=== PATIENT | male | born 2000 | race Two or more races ===

== ENCOUNTER 2025-06-16 13:57 | Emergency (ER) | payer MEDICAID, SELFPAY ==
[2025-06-16 14:03] VITALS: BP 128/79; PULSE 84; RESP 16; TEMP 36.9; O2SAT 96; BMI 33.4
--- NOTE | 2025-06-16 14:12 | EDNOTE_ITS ---
ED General RME/HPI General Chief complaint: General Adult/Misc Complain Stated complaint: INFECTION TIP OF PENIS Time Seen by Provider: 06/16/25 14:11 Arrival date/time: 06/16/25 13:57 RME / HPI RME / HPI narrative: Katja is a 25 y/o male with PMHx of Pilondial cyst who comes in for evaluation of penile pain, swelling, and discharge, onset about a week ago, has happened before about 2 years ago. Patient reports that this pain had started about a week ago and during the week he had gone to develop drainage that was described as yellow and red. He says he has not been able to retract his foreskin, however he wants to go see his primary care doctor and was told to go to the ER. He says that something similar to this happened about 2 years ago, however resolved on his own. He has been using ibuprofen to manage his pain. His pain is rated 8 out of 10 at this time. He is currently sexually active in the last sexual partner he had was about 6 months ago in which it was a female and he wore protection. He says he has been able to pee fine. He reports any testicular pain, abdominal pain, chest pain, shortness of breath, numbness, tingling, however he does say that he noticed some chills. He is uncircumcised. He denies having any problem with vision or arthralgias. Denies any drug history, recent travel or smoking history. No other complaints at this time. Related Data Previous Rx's ?Medication ?Instructions ?Recorded albuterol sulfate 90 mcg/actuation 2 puff inhalation Q ID #18 grams 03/03/19 aerosol inhaler (Proventil HFA) methylprednisolone 4 mg tablets in 4 mg PO DAILY #21 t abs 03/03/19 a dose pack (Medrol (Robert)) azithromycin 500 mg tablet See Rx Instructions PO .COM PLEX #3 09/18/20 tabs cephalexin 500 mg capsule (Keflex) 500 mg PO Q12H #14 caps 09/18/20 ondansetron 4 mg disintegrating 4 mg PO Q8H PRN nausea and 09/18/20 tablet vomiting #14 tabs amoxicillin 875 mg-potassium 1 tab PO BID #14 tabs 07/01 clavulanate 125 mg tablet doxycycline monohydrate 100 mg 100 mg PO BID 7 days #1 4 caps 06/16/25 capsule ibuprofen 800 mg tablet 800 mg PO Q8H PRN pain #30 t abs 06/16/25 Allergies Allergy/AdvReac Type Severity Reaction Status Date / Time No Known Allergies Allergy Verified 06/16/25 14:00 Review of Systems Review of Systems Narrative Review of Systems: 12 point ROS reviewed and is otherwise negative unless stated directly in the HPI ED Exam Narrative Physical exam: General: AAOx3, NAD, HEENT: Moist mucous membranes, conjunctiva clear, EOMI, PERRLA, Cardiovascular: S1, S2, radial pulses +2 bilat, RRR Pulmonary: CTAB bilat no cough, no wheezing GI: No tenderness to light or deep palpitation, no guarding, rigidity, rebound tenderness or distension, anus visualized, anal wink present, no cyst or abscess visualized around gluteal region : Testicular shaft swollen, urethra draining yellow, scant, red pus that is odorous. Difficulty retracting foreskin due to pain, testes unremarkable Extremities: No presence of trace or pitting edema in lower extremities bilaterally, dorsalis pedis pulses +2 bilaterally Neuro: AAOx3, no focal motor or sensory deficits in the UE or LE bilat Psych: Good judgement, thought and behavior Course Quality Measures none Orders Category Date Time Status CT Screening NOW Care 06/16/25 15:14 Completed Insert IV NOW Care 06/16/25 15:[address] abdomen pelvis w con Stat Exams 06/16/25 15:14 Completed Blood Culture (Lab) Stat Lab 06/16/25 14:21 Received CBC Stat Lab 06/16/25 14:29 Completed CMP [Comprehensive Metabolic Panel] Stat Lab 06/16/25 14:29 Completed Chlamydia/GC/TV - PCR Stat Lab 06/16/25 15:00 Received Genital Culture and Gram Stain Stat Lab 06/16/25 14:35 Results HIV (1&2) Antibody Rapid Stat Lab 06/16/25 14:29 Completed Lactate (Lactic Acid) Stat Lab 06/16/25 14:29 Completed Procalcitonin Stat Lab 06/16/25 14:29 Completed Syphilis Stat Lab 06/16/25 14:29 Completed UA, C/S IF [Urinalysis, C/S if Indicated] Stat Lab 06/16/25 15:00 Completed Urine Culture Stat Lab 06/16/25 15:00 Received Doxycycline [Vibramycin] Med 06/16/25 14:40 Discontinued 100 mg PO X1 ONE Ketorolac Inj [Toradol Inj] Med 06/16/25 14:45 Discontinued 30 mg IM X1 ONE cefTRIAXone [Rocephin] 1,000 mg Med 06/16/25 14:44 Discontinued Lidocaine 1% 20 ml [Xylocaine 1% 20 ML] 2.1 ml IM X1 Vital Signs Vital signs: Vital Signs Temperature 98.5 F 06/16/25 14:03 Pulse Rate 84 06/16/25 14:03 Respiratory Rate 16 06/16/25 14:03 Blood Pressure 128/79 06/16/25 14:03 Pulse Oximetry (%) 96 06/16/25 14:03 Oxygen Delivery Method Room Air 06/16/25 14:03 Discharge Plan Plan Patient Disposition: HOME (Self Care) Discharge Disposition comment: Stable Prescriptions/Referrals Prescriptions/Med Rec: New doxycycline monohydrate 100 mg capsule 100 mg PO BID 7 Days Qty: 14 0RF Rx Instructions: Take one capsule by mouth twice a day amoxicillin-pot clavulanate 875-125 mg tablet 1 tab PO BID Qty: 14 0RF ibuprofen 800 mg tablet 800 mg PO Q8H PRN (Reason: pain) Qty: 30 0RF No Action albuterol sulfate [Proventil HFA] 90 mcg/actuation HFA aerosol inhaler 2 puff INH QID Qty: 18 0RF methylprednisolone [Medrol (Robert)] 4 mg tablets,dose pack 4 mg PO DAILY Qty: 21 0RF azithromycin 500 mg tablet See Rx Instructions .ROUTE .COMPLEX Qty: 3 0RF Rx Instructions: take 500 mg today (day 1), then 250 mg for 4 days (days 2-5) cephalexin [Keflex] 500 mg capsule 500 mg PO Q12H Qty: 14 0RF ondansetron 4 mg tablet,disintegrating 4 mg PO Q8H PRN (Reason: nausea and vomiting) Qty: 14 0RF Referrals: No Primary/Family,Physician [Primary Care Provider] - In 1 week Problem List Clinical Impression: Urethritis Patient/Caregiver Discharge Instructions Discharge Activity: activity as tolerated Education Materials: ED Urethritis Infec Vs Inflam ... Additional Instructions: Thank you for the opportunity for serving you today. You are stable for discharged . You are advised to: Follow-up with your PCP in 1 to 2 days unless there is a urologist Return to ED for worsening of symptoms Increase oral fluids Take medication as prescribed Print Language: Mohawk Stand Alone Forms: Lana Award Info., Work/School Release, Patient Portal Info Letter MDM Narrative MDM hospital course (for use when minimal MDM required): 1512: Rocephin intramuscularly, doxycycline oral, will follow-up labs, due to possible deep seeding infection and history of this before, will order abdomen pelvis CT with contrast as also patient has history of this and spondylosis. Will follow-up with genital fluid culture. U/A ordered. Will follow up with STD panel and other labs. 1800: Case handed off to ED Provider, Arvin Campbell. Medication Administration(s) Medication Administration History Discontinued Medications Ceftriaxone Sodium 1,000 mg/ (Lidocaine HCl 2.1 ml) 0 mg IM X1 ONE Stop: 06/16/25 14:45 Last Admin: 06/16/25 14:55 Dose: 1,000 mg Documented By: Jose Ramon Doxycycline Hyclate (Doxycycline 100 Mg Tablet) 100 mg PO X1 ONE Stop: 06/16/25 14:41 Last Admin: 06/16/25 14:53 Dose: 100 mg Documented By: [facility] Ketorolac Tromethamine (Ketorolac Inj 30 Mg/Ml Vial) 30 mg IM X1 ONE Stop: 06/16/25 14:46 Last Admin: 06/16/25 14:53 Dose: 30 mg Documented By: [facility]
--- NOTE | 2025-06-16 14:12 | PD.EDRME ---
Rapid Medical Screening Exam [facility] Arrival date/time: 06/16/25 13:57 25-year-old male with no known medical history presents to the emergency room with a chief complaint of swelling, pus draining, tenderness, to the head of his penis. Patient is unable to retract back his foreskin. I have greeted and performed a focused initial assessment of this patient. A comprehensive ED assessment and evaluation of the patient, analysis of all test results, and completion of the medical decision making process will be conducted by additional ED providers. Chief Complaint: General Adult/Misc Complain Time Seen by Provider: 06/16/25 14:11 Vital signs: Vital Signs Temperature 98.5 F 06/16/25 14:03 Pulse Rate 84 06/16/25 14:03 Respiratory Rate 16 06/16/25 14:03 Blood Pressure 128/79 06/16/25 14:03 Pulse Oximetry (%) 96 06/16/25 14:03 Oxygen Delivery Method Room Air 06/16/25 14:03 Vital signs reviewed by provider: Yes
[2025-06-16 14:26] VITALS: BP 118/80; PULSE 78; RESP 16; O2SAT 97
--- NOTE | 2025-06-16 14:29 | PC.NURSE ---
pt here with c/o redness and drainage from penis for 2 days
--- NOTE | 2025-06-16 14:35 | PC.NURSE ---
dr. charles in to examine pt's penis. Brown drainage coming from penis. Head and shaft of penis swollen. Culture done by
[2025-06-16 14:38] LABS: Lactate (Lactic Acid) 0.8 mMol/L (0.4-2.0)
[2025-06-16 14:47] LABS: Basophils # (Auto) 0.1 Thou/mm3 (0.0-0.2); Basophils % (Auto) 0 % (0-2.5); Eosinophils # (Auto) 0.0 Thou/mm3 (0.0-0.5); Eosinophils % (Auto) 0 % (0-10); Hematocrit 40.1 % (41.0-53.0); Hemoglobin 13.9 g/dL (13.5-16.0); Immature Granulocytes Auto 0.06 Thou/mm3 (0.00-0.00); Lymphocytes # (Auto) 2.4 Thou/mm3 (1.0-4.8); Lymphocytes % (Auto) 19 % (10-50); Mean Corpuscular HGB Conc 34.7 g/dl (31.0-37.0); Mean Corpuscular Hemoglobin 32.5 pg (25.0-35.0); Mean Corpuscular Volume 94 fL (80-100); Monocytes # (Auto) 0.8 Thou/mm3 (0.0-0.8); Monocytes % (Auto) 6 % (0-12); Neutrophils # (Auto) 9.4 Thou/mm3 (1.8-7.7); Neutrophils % (Auto) 74 % (37-80); Nucleated Red Blood Cell # 0.00 Thou/mm3 (0.00-0.00); Nucleated Red Blood Cell % 0 /100 WBC (0); Platelet Count 325 Thou/mm3 (140-440); RDW Standard Deviation 43.6 fL (35.1-43.9); Red Blood Count 4.28 Miln/mm3 (4.50-5.90); White Blood Count 12.7 Thou/mm3 (3.8-10.6)
[2025-06-16] MEDS: KETOROLAC INJ 30 MG/ML VIAL IM (14:53)
[2025-06-16] MEDS: DOXYCYCLINE 100 MG TABLET PO (14:53)
[2025-06-16] MEDS: cefTRIAXone 1,000 MG, LIDOCAINE 1% 20 ML 2.1 ML IM (14:55)
--- NOTE | 2025-06-16 15:14 | XR_ITS ---
Examination: CT abdomen with intravenous contrast CT pelvis with intravenous contrast 2-D coronal reconstructions 2-D sagittal reconstructions Date and time of exam: June 16, 2025, 1731 hours INDICATIONS: History of infection involving the penis 3 days ago, abdominal pelvic pain. CTDI: vol (mGy) 9.62 DLP: (mGycm) 9.62 Technique: Multiple axial sections of the abdomen and pelvis have been obtained. 64 slice high-resolution scanner used. 3 mm axial sections have been obtained, post intravenous injection 60 cc [id number] 2-D sagittal, coronal reconstructions obtained. Low dose protocols were performed. One or more of the following dose reduction techniques were used; automated exposure control, adjustment of the mA and/or KV according to patient size, use of iterative reconstruction technique. Findings: No focal liver or splenic lesions No gallstones No pancreatic or adrenal mass No renal or ureteral calculi Aorta normal size. No bowel obstruction Normal appendix Colonic diverticulosis, no diverticulitis No pelvic or urinary bladder mass Swelling of the mid and distal portion of the penis IMPRESSION: No abdominal or pelvic abscess Recommend ultrasound soft tissue penis follow-up
[2025-06-16 15:16] LABS: Collection Type, Urine Clean Catch
[2025-06-16 15:20] LABS: Alanine Aminotransferase 21 U/L (10-49); Albumin, Serum 5.2 gm/dL (3.5-5.0); Albumin/Globulin Ratio 1.6 (1.2-2.2); Alkaline Phosphatase 84 U/L (46-116); Anion Gap 11 (7-16); Aspartate Amino Transferase 16 U/L (0-34); BUN/Creatinine Ratio 11 Ratio (12-20); Bilirubin,Total 0.5 mg/dL (0.3-1.2); Blood Urea Nitrogen 10 mg/dL (9-23); Calcium 10.0 mg/dL (8.3-10.6); Calcium (Corrected) 10.0 mg/dL (8.5-10.1); Carbon Dioxide 22.1 mMol/L (20.0-31.0); Chloride 106 mMol/L (98-107); Creatinine (Component) 0.9 mg/dL (0.6-1.3); Estimated Creatinine Clearance 143.7 mL/min (>60); Globulin 3.3 gm/dL (2.3-3.5); Glucose 97 mg/dL (74-106); Osmolality,Calculated 276 (275-295); Potassium 3.9 mMol/L (3.4-5.1); Procalcitonin 0.19 ng/ml (0.0-0.49); Sodium 139 mMol/L (136-145); Total Protein 8.5 gm/dL (5.7-8.2); eGFR > 60 See Note
[2025-06-16 15:32] LABS: Bacteria,Urine 1+; Bilirubin,Urine Negative (Negative); Blood,Urine 3+ (Negative); Color,Urine Yellow (Lt Yel-Yel); Glucose, Urine Negative (Negative); Ketones,Urine Negative (Negative); Leukocyte Esterase,Urine Positive (Negative); Nitrite,Urine Negative (Negative); PH,Urine 6.0 (5.0-7.0); Protein,Urine 1+ (Neg - Trace); RBC,Urine 477 /hpf (0-3); Specific Gravity,Urine 1.030 (1.001-1.035); Squamous Epithelial Cell,Urine 4 /hpf (0-5); Urobilinogen,Urine Negative mg/dL (0.0-1.0); WBC,Urine 438 /hpf (0-5)
[2025-06-16 15:33] LABS: Syphilis Nonreactive (Nonreactive)
[2025-06-16 15:40] LABS: HIV (1&2) Antibody Rapid Non-Reactive
[2025-06-16 16:00] VITALS: BP 109/78; PULSE 65; RESP 16; O2SAT 96
[2025-06-16 16:02] LABS: Clarity,Urine Hazy (Clear/Hazy); Culture Indicated,Urine Yes
[2025-06-16 17:55] VITALS: BP 123/69; PULSE 73; RESP 18; TEMP 36.9; O2SAT 99
--- NOTE | 2025-06-16 19:43 | PD.EDADDENDU ---
Emergency Room Addendum Addendum Narrative: Patient was endorsed to me by Dr Rehman pending CT scan results. I reviewed patient's past medical history, HPI, physical examination, laboratory workup. CT scan of the abdomen and pelvis came back unremarkable. I examined genital myself also and agree with initial finding. Please refer to previous notes. By Dr. Rehman. Plan of care discussed with the patient, including prescription for antibiotic. Patient appears nontoxic and hemodynamically stable .Decision to discharge the patient. The patient/family was given an opportunity to ask questions and understood their discharge instructions. Discharge instructions specifically included follow up provider and time frame, current and/or new medications and possible side effects, indications for sooner follow up or return to the emergency department, and the expected course of current diagnosis. Patient reports feeling better as well and giving evidence of significant clinical improvement, I believe patient is now a candidate for discharge.
[2025-06-16 20:09] VITALS: BP 127/84; PULSE 73; RESP 18; TEMP 37.2; O2SAT 98
[2025-06-17 15:31] LABS: Chlamydia trachomatis PCR Negative (Not Detect); Neisseria Gonorrhoeae DNA PCR Negative (Not Detect); Trichomonas Negative (Negative)
== END 2025-06-16 20:53 | disposition home or self-care (01) ==
PROVIDERS: Nurse Practitioner Family; Emergency Provider Family Medicine
DX: N34.2 Other urethritis (principal); N50.819 Testicular pain, unspecified; Z79.52 Long term (current) use of systemic steroids
CPT/HCPCS: 36415; 74177; 80053; 81001; 83605; 84145; 85025; 86703; 86780; 87040; 87070; 87086; 87205; 87491; 87591; 87661; 99284; A4649; J0696; J1885; J3490; Q9967; A9270